=== PATIENT | male | born 1995 | race Caucasian/White ===

== ENCOUNTER 2022-09-26 20:18 | Emergency (ER) | payer SELFPAY ==
[~2022-09-26] VITALS: Ht 170.2 cm; Wt 68.0 kg
[2022-09-26 20:25] VITALS: BP 116/70; TEMP 98.6
[2022-09-26] MEDS ORDERED: IV NS 0.9% 1,000 ML BAG IV ONE (20:30)
[2022-09-26] MEDS ORDERED: LORAZEPAM INJ 2 MG/ML VIAL IVP ONE (20:30)
--- NOTE | 2022-09-26 20:32 | NUR ---
patient requesting not to have blood draw or medications. States he feels calm.
[2022-09-26 20:57] VITALS: O2SAT 100
--- NOTE | 2022-09-26 20:57 | NUR ---
Patient discharged to home in stable condition. Written and verbal after care instructions given. Patient verbalizes understanding of instruction.
== END 2022-09-26 20:58 | disposition home or self-care (01) ==
LOC: ER 20:20
DX: F15.10 Other stimulant abuse, uncomplicated (principal); F17.200 Nicotine dependence, unspecified, uncomplicated; Z60.2 Problems related to living alone
CPT/HCPCS: J7030